=== PATIENT | female | born 1950 | race Caucasian/White ===

== ENCOUNTER 2019-10-01 00:24 | Emergency (ER) | payer MEDICARE, BC ==
[2019-10-01 00:40] VITALS: BP 162/85; PULSE 64
--- NOTE | 2019-10-01 01:01 | EDM.PDOC ---
ED HPI GENERAL MEDICAL PROBLEM - General Chief Complaint: Chest Pain Stated Complaint: UPPER ABD PAIN. SIMILAR TO PREVIOUS HEART ATTACK Time Seen by Provider: 10/01/19 00:33 Source of Information: Reports: Patient History Limitations: Reports: No Limitations - History of Present Illness INITIAL COMMENTS - FREE TEXT/NARRATIVE: TRIAGE NOTE -- Pt c/o sudden onset upper epigastric pain that is an aching cramp in natures. pt states it is similar to the pain she had 6 years ago when she was found to have suffered a heart attack and had 1 stent placed. Pt denies diaphoresis, n/v/d. [ End ] Noted. The patient had onset of epigastric discomfort about 1 hour ago. She went to bed and thought it would go away but it continued to trouble her and she came to the emergency department. The pain is in the epigastric area. Does not radiate. No shortness of breath associated with it. No radiation. She has never had upper endoscopy. She does take a nonsteroidal anti- inflammatory pill on a daily basis. Risk factors otherwise would consist of an TX 4 years ago or so with stent placement. Patient has not taken any medication or tried any other measures to moderate symptoms. The pain has moderated over the past hour or so and is much less at the present time. Upper Epigastric Pain Score (Numeric/FACES): 4 - Related Data Allergies Allergy/AdvReac Type Severity Reaction Status Date / Time latex Allergy Severe Itching Verified 10/01/19 00:34 Sulfa (Sulfonamide Allergy Severe Hives Verified 10/01/19 00:34 Antibiotics) iodine AdvReac Severe Vomiting Verified 10/01/19 00:34 shellfish derived AdvReac Severe Vomiting Verified 10/01/19 00:34 Home Meds: Home Meds Aspirin [[place] Aspirin] 162 mg PO DAILY 03/22/14 [History] Lisinopril 2.5 mg PO DAILY 03/22/14 [History] Loratadine [Claritin] 10 mg PO DAILY 03/22/14 [History] Metoprolol Succinate 25 mg PO DAILY 03/22/14 [History] Nitroglycerin [Nitrostat] 0.4 mg SL ASDIRECTED PRN 03/22/14 [History] atorvaSTATin [Lipitor] 20 mg PO ONETIME 03/22/14 [History] Losartan [Cozaar] 12.5 mg PO DAILY 10/01/19 [History] Naproxen Sodium [Aleve] 220 mg PO DAILY 10/01/19 [History] Omeprazole Magnesium [Prilosec Otc] 20 mg PO DAILY 10/01/19 [History] Past Medical History HEENT History: Reports: Impaired Vision Other HEENT History: Wears glasses Cardiovascular History: Reports: TX Gastrointestinal History: Reports: GERD Genitourinary History: Reports: UTI, Recurrent Other Genitourinary History: Bladder prolapse 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: Musculoskeletal History: Reports: Arthritis, Fracture - Past Surgical History Cardiovascular Surgical History: Reports: Coronary Artery Stent Female Surgical History: Reports: Hysterectomy, Salpingo-Oophorectomy, Other (See Below) Other Female Surgeries/Procedures: Bladder sling Musculoskeletal Surgical History: Reports: Knee Replacement Social & Family History - Tobacco Use Smoking Status *Q: Former Smoker Used Tobacco, but Quit: Yes Month/Year Tobacco Last Used: 1970 - Recreational Drug Use Recreational Drug Use: No ED ROS GENERAL - Review of Systems Review Of Systems: Comprehensive ROS is negative, except as noted in HPI. ED EXAM, GENERAL - Physical Exam Exam: See Below Exam Limited By: No Limitations General Appearance: Alert, WD/WN, No Apparent Distress Eye Exam: Bilateral Eye: EOMI, PERRL Ears: Normal External Exam Nose: Normal Inspection Throat/Mouth: Normal Inspection Head: Atraumatic, Normocephalic Neck: Normal Inspection, Supple Respiratory/Chest: No Respiratory Distress, Lungs Clear, Normal Breath Sounds Cardiovascular: Regular Rate, Rhythm, No Edema, No Gallop, No Murmur GI/Abdominal: Normal Bowel Sounds, Soft, Tender (Mild epigastric tenderness on deep palpation which equivocally replicates the patient's pain that brought her here.) Back Exam: Normal Inspection Extremities: Normal Inspection, Non-Tender Neurological: Alert, Oriented, Normal Cognition, No Motor/Sensory Deficits Psychiatric: Normal Affect, Normal Mood Skin Exam: Warm, Dry Course - Vital Signs Last Recorded V/S: Last Vital Signs Temp 35.9 C L 10/01/19 00:36 Pulse 64 10/01/19 00:36 Resp 16 10/01/19 00:36 BP 162/85 H 10/01/19 00:36 Pulse Ox 96 10/01/19 00:36 - Orders/Labs/Meds Orders: Active Orders 24 hr Category Date Time Status EKG Documentation Completion [RC] STAT Care 10/01/19 00:45 Active EKG Documentation Completion [RC] STAT Care 10/01/19 04:29 Ordered Chest 1V Frontal [CR] Stat Exams 10/01/19 00:45 Taken Labs: Laboratory Tests 10/01/19 10/01/19 10/01/19 Range/Units 00:38 00:38 00:38 WBC 5.81 (3.98-10.04) K/mm3 RBC 4.80 (3.98-5.22) M/mm3 Hgb 14.1 (11.2-15.7) gm/dl Hct 41.7 (34.1-44.9) % MCV 86.9 (79.4-94.8) fl MCH 29.4 (25.6-32.2) pg MCHC 33.8 (32.2-35.5) g/dl RDW Std Deviation 45.3 (36.4-46.3) fL Plt Count 206 (182-369) K/mm3 MPV 9.6 (9.4-12.3) fl Neutrophils % (Manual) 48 (40-60) % Band Neutrophils % 0 (0-10) % Lymphocytes % (Manual) 44 H (20-40) % Atypical Lymphs % 0 % Monocytes % (Manual) 7 (2-10) % Eosinophils % (Manual) 0 L (0.7-5.8) % Basophils % (Manual) 1 (0.1-1.2) Platelet Estimate Adequate RBC Morph Comment Normal PT 10.7 (9.7-12.0) SECONDS INR 0.98 APTT (22-31) SECONDS Sodium 142 D (136-145) mEq/L Potassium 3.8 (3.5-5.1) mEq/L Chloride 105 (98-107) mEq/L Carbon Dioxide 25 (21-32) mEq/L Anion Gap 15.8 H (5-15) BUN 17 (7-18) mg/dL Creatinine 0.9 (0.55-1.02) mg/dL Est Cr Clr Drug Dosing 49.49 mL/min Estimated GFR (MDRD) > 60 (>60) mL/min BUN/Creatinine Ratio 18.9 H (14-18) Glucose 100 (80-115) mg/dL Calcium 9.0 (8.5-10.1) mg/dL Total Bilirubin 1.2 H (0.2-1.0) mg/dL AST 40 H (15-37) U/L ALT 41 (14-59) U/L Alkaline Phosphatase 99 (46-116) U/L Troponin I < 0.017 (0.00-0.056) ng/mL Total Protein 7.6 (6.4-8.2) g/dl Albumin 3.9 (3.4-5.0) g/dl Globulin 3.7 gm/dL Albumin/Globulin Ratio 1.1 (1-2) Lipase 192 (73-393) U/L Urine Color (Yellow) Urine Appearance (Clear) Urine pH (5.0-8.0) Ur Specific [place] (1.005-1.030) Urine Protein (Negative) Urine Glucose (UA) (Negative) Urine Ketones (Negative) Urine Occult Blood (Negative) Urine Nitrite (Negative) Urine Bilirubin (Negative) Urine Urobilinogen (0.2-1.0) Ur Leukocyte Esterase (Negative) Urine RBC (0-5) /hpf Urine WBC (0-5) /hpf Ur Squamous Epith Cells (0-5) /hpf Urine Bacteria (FEW) /hpf Urine Mucus (FEW) /hpf 10/01/19 10/01/19 10/01/19 Range/Units 00:38 02:27 03:47 WBC (3.98-10.04) K/mm3 RBC (3.98-5.22) M/mm3 Hgb (11.2-15.7) gm/dl Hct (34.1-44.9) % MCV (79.4-94.8) fl MCH (25.6-32.2) pg MCHC (32.2-35.5) g/dl RDW Std Deviation (36.4-46.3) fL Plt Count (182-369) K/mm3 MPV (9.4-12.3) fl Neutrophils % (Manual) (40-60) % Band Neutrophils % (0-10) % Lymphocytes % (Manual) (20-40) % Atypical Lymphs % % Monocytes % (Manual) (2-10) % Eosinophils % (Manual) (0.7-5.8) % Basophils % (Manual) (0.1-1.2) Platelet Estimate RBC Morph Comment PT (9.7-12.0) SECONDS INR APTT 31 (22-31) SECONDS Sodium (136-145) mEq/L Potassium (3.5-5.1) mEq/L Chloride (98-107) mEq/L Carbon Dioxide (21-32) mEq/L Anion Gap (5-15) BUN (7-18) mg/dL Creatinine (0.55-1.02) mg/dL Est Cr Clr Drug Dosing mL/min Estimated GFR (MDRD) (>60) mL/min BUN/Creatinine Ratio (14-18) Glucose (80-115) mg/dL Calcium (8.5-10.1) mg/dL Total Bilirubin (0.2-1.0) mg/dL AST (15-37) U/L ALT (14-59) U/L Alkaline Phosphatase (46-116) U/L Troponin I < 0.017 (0.00-0.056) ng/mL Total Protein (6.4-8.2) g/dl Albumin (3.4-5.0) g/dl Globulin gm/dL Albumin/Globulin Ratio (1-2) Lipase (73-393) U/L Urine Color Yellow (Yellow) Urine Appearance Clear (Clear) Urine pH 6.0 (5.0-8.0) Ur Specific [place] 1.015 (1.005-1.030) Urine Protein Negative (Negative) Urine Glucose (UA) Negative (Negative) Urine Ketones Negative (Negative) Urine Occult Blood Trace-intact H (Negative) Urine Nitrite Negative (Negative) Urine Bilirubin Negative (Negative) Urine Urobilinogen 0.2 (0.2-1.0) Ur Leukocyte Esterase Negative (Negative) Urine RBC 0-5 (0-5) /hpf Urine WBC Not seen (0-5) /hpf Ur Squamous Epith Cells 0-5 (0-5) /hpf Urine Bacteria Rare (FEW) /hpf Urine Mucus Not seen (FEW) /hpf Meds: Medications Discontinued Medications Generic Name Dose Route Start Last Admin Trade Name Freq PRN Reason Stop Dose Admin Al Hydroxide/Mg Hydroxide 30 0 ml 10/01/19 01:21 10/01/19 01:30 ml/ Lidocaine HCl 15 ml PO 10/01/19 01:22 45 ml ONETIME ONE Administration - Re-Assessments/Exams Free Text/Narrative Re-Assessment/Exam: 10/01/19 04:37 Came in out of concern that her symptoms of epigastric pain represented an acute coronary syndrome. She has a history of TX in 2014 apparently and had a stent placed. She has a slip tender in [place]. The pain she was complaining of was equivocally reproducible by palpating the upper abdomen. There was possibly some modest moderation of symptoms with a GI cocktail. EKG did not show any acute change. In light of the presentation and the concerns the patient was held for a second troponin and EKG. No change in the EKG. Troponin is again very low this is the first george. Discussed fully with the patient. I think it is safe for her to go home at this point. She does need to call her slip tender this morning for any further recommendations. Her primary may want to refer her to GI as she is never had endoscopy. The symptoms produced may be related to the nonsteroidal anti-inflammatory she takes on a daily basis. 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 There is no evidence of an acute cardiological event during our evaluation. Your EKG does not show any evidence of an acute heart attack. Your troponin which is a very sensitive indicator of heart damage was initially very low and normal and on repeat a few hours later it was still very low and normal. It is safe to go home. It is highly recommended that you call your slip tender in [place] this morning for any further recommendations. There is also a likelihood that your symptoms are being caused by peptic ulcer disease. Taking a nonsteroidal anti-inflammatory such as Aleve on a regular basis can produce irritation of the stomach and elsewhere in the GI tract which may account for your symptoms. You should also report this visit to your primary locally. At your age it would be reasonable to have a GI consult and screening colonoscopy in light of your age and also upper endoscopy in light of your symptoms. Should you have any further concerns upon returning home especially with chest pain associated with shortness of breath inability to mobilize sweating nausea do not hesitate to call 911 and come to the ER immediately. Sepsis Event Note - Evaluation Sepsis Screening Result: No Definite Risk - Focused Exam Vital Signs: Vital Signs Temp Pulse Resp BP Pulse Ox 10/01/19 00:36 35.9 C L 64 16 162/85 H 96 Date Exam was Performed: 10/01/19 Time Exam was Performed: 04:37 - My Orders Last 24 Hours: My Active Orders 10/01/19 00:45 EKG Documentation Completion [RC] STAT Chest 1V Frontal [CR] Stat 10/01/19 04:29 EKG Documentation Completion [RC] STAT - Assessment/Plan Last 24 Hours: My Active Orders 10/01/19 00:45 EKG Documentation Completion [RC] STAT Chest 1V Frontal [CR] Stat 10/01/19 04:29 EKG Documentation Completion [RC] STAT
[2019-10-01] MEDS ORDERED: Alum Hydrox/Mag Hydrox/Simeth 30 ML, Lidocaine 2% 15 ML PO ONE ×2 (01:21)
--- NOTE | 2019-10-01 09:21 | CR ---
Chest: Portable view of the chest was obtained. Comparison: Prior chest x-ray of 01/28/14. Heart size is mildly enlarged. Tortuous thoracic aorta is seen. Lungs are clear with no acute parenchymal change. Scattered degenerative spurring is noted within the spine. Impression: 1. Nothing acute is seen on portable chest x-ray. Diagnostic code #1 This report was dictated in [facility]
== END 2019-10-01 04:57 | disposition home or self-care (01) ==
LOC: JD.ED 00:24
DX: R07.89 Other chest pain (principal); R10.13 Epigastric pain; I25.2 Old myocardial infarction; K21.9 Gastro-esophageal reflux disease without esophagitis; M19.90 Unspecified osteoarthritis, unspecified site; Z88.2 Allergy status to sulfonamides; Z91.040 Latex allergy status; Z91.013 Allergy to seafood; Z91.09 Other allergy status, other than to drugs and biological substances; Z79.82 Long term (current) use of aspirin; Z79.899 Other long term (current) drug therapy; Z95.5 Presence of coronary angioplasty implant and graft; Z87.891 Personal history of nicotine dependence; Z79.1 Long term (current) use of non-steroidal anti-inflammatories (NSAID)
CPT/HCPCS: 36415; 71045; 80053; 81001; 83690; 84484; 85007; 85027; 85610; 85730; 93005; 99284; A9270; 93010

== ENCOUNTER 2023-06-24 08:19 | Emergency (ER) | payer MEDICARE ==
[2023-06-24] MEDS ORDERED: Aspirin 81 MG Tab.EC PO ONE (08:47)
[2023-06-24] MEDS ORDERED: Morphine 2 MG/ML SYRINGE IVPUSH ONE (09:03)
[2023-06-24] MEDS ORDERED: Ondansetron 4 MG in Sodium Chloride 0.9% 50 ML IV ONE (09:03)
[2023-06-24 09:04] LABS: HEMATOCRIT 40.1 % (37.0-47.0); HEMOGLOBIN 13.6 gm/dl (12.0-16.0); MEAN CORPUSCULAR HEMOGLOBIN 29.8 pg (28.0-32.0); MEAN CORPUSCULAR HGB CONC 33.9 g/dl (32.0-36.0); MEAN CORPUSCULAR VOLUME 87.9 fl (83.0-99.0); MEAN PLATELET VOLUME 9.2 fl (9.4-12.3); PLATELET COUNT,PLT 175 K/mm3 (150-400); RED BLOOD CELL COUNT 4.56 M/mm3 (4.10-5.30); WHITE BLOOD CELL COUNT,WBC 3.59 K/mm3 (3.9-11.3)
[2023-06-24] MEDS ORDERED: Ondansetron 4 MG/2 ML SDV IVPUSH ONE (09:15)
[2023-06-24 09:30] LABS: A/G RATIO 0.9 (1-2); ALBUMIN 3.4 g/dl (3.4-5.0); ANION GAP 12.9 (5-15); BILIRUBIN TOTAL 1.4 mg/dL (0.2-1.0); BUN/CREATININE RATIO 17.5 (14-18); CALCIUM 8.9 mg/dL (8.5-10.1); CREATININE 0.8 mg/dL (0.55-1.02); EST CRCL DRUG DOSING (CG) 52.58 mL/min; POTASSIUM,K 3.9 mEq/L (3.5-5.1); PROTEIN TOTAL,TP 7.3 g/dl (6.4-8.2)
[2023-06-24 12:09] VITALS: BP 158/79; PULSE 61
== END 2023-06-24 12:08 | disposition home or self-care (01) ==
LOC: JD.ED 08:19
DX: M54.2 Cervicalgia (principal); R07.89 Other chest pain; K21.9 Gastro-esophageal reflux disease without esophagitis; Z95.5 Presence of coronary angioplasty implant and graft; Z79.82 Long term (current) use of aspirin; Z91.040 Latex allergy status; Z91.013 Allergy to seafood; Z91.041 Radiographic dye allergy status; Z88.2 Allergy status to sulfonamides
CPT/HCPCS: 36415; 71046; 71046-26; 80053; 83690; 84484; 85027; 93005; 96374; 99284-25; A9270-GY; J2405